=== PATIENT | male | born 1975 | race Two or more races ===

== ENCOUNTER 2022-11-11 15:53 | Emergency (ER) | payer OTHER | END 2022-11-11 16:35 | disposition home or self-care (01) | LOC: JD.ED 15:53 | DX: S61.206A Unspecified open wound of right little finger without damage to nail, initial encounter (principal); Y99.0 Civilian activity done for income or pay; W27.0XXA Contact with workbench tool, initial encounter | CPT/HCPCS: 99282 ==

== ENCOUNTER 2023-01-09 00:15 | Emergency (ER) | payer SELFPAY | END 2023-01-09 01:10 | LOC: JD.ED 00:15 | DX: Z02.89 Encounter for other administrative examinations (principal); I10 Essential (primary) hypertension; E78.00 Pure hypercholesterolemia, unspecified; Z87.891 Personal history of nicotine dependence | CPT/HCPCS: 99282; 99283 ==